=== PATIENT | male | born 1960 | race American Indian/Alaskan Native ===

== ENCOUNTER 2017-10-02 14:19 | Inpatient (IN) | payer OTHER ==
[2017-10-02] MEDS ORDERED: NACL 0.9% 500 ML 500 ML IV ONE (15:31)
[2017-10-02 16:35] LABS: Alanine Aminotransferase 12 units/L (7-56); Albumin 4.1 g/dL (3.9-5); BUN/Creatinine Ratio 14; Blood Urea Nitrogen 17 mg/dL (9-20); Calcium 9.2 mg/dL (8.4-10.2); Hemolysis Index 18
[2017-10-02] MEDS ORDERED: TYLENOL PR ONE ×2 (16:36→16:50)
[2017-10-02 16:40] LABS: Basophils # (Auto) 0.1 K/mm3 (0.0-0.1); Basophils % (Auto) 0.7 % (0.0-1.8); Eosinophils % (Auto) 0.4 % (0.0-4.3); Hematocrit 43.3 % (35.5-45.6); Hemoglobin 14.3 gm/dl (11.8-15.2); Lymphocytes % (Auto) 12.3 % (13.4-35.0); Mean Corpuscular HGB Conc 33 % (32-34); Mean Corpuscular Hemoglobin 29 pg (28-32); Mean Corpuscular Volume 89 fl (84-94); Monocytes # (Auto) 0.8 K/mm3 (0.0-0.8); Monocytes % (Auto) 9.5 % (0.0-7.3); Platelet Count 190 K/mm3 (140-440); Red Blood Count 4.89 M/mm3 (3.65-5.03); Red Cell Distribution Width 13.4 % (13.2-15.2)
[2017-10-02 16:41] LABS: Bilirubin,Urine NEG (Negative); Blood,Urine SM (Negative); Color,Urine Yellow (Yellow); Mucus,Urine FEW /HPF; Nitrite,Urine NEG (Negative); Protein,Urine <15 mg/dL mg/dL (Negative)
[2017-10-02 16:44] LABS: Creatine Kinase MB < 1.0 ng/mL (0.0-4.0)
[2017-10-02 16:48] LABS: INR 1.12 (0.87-1.13)
[2017-10-02 17:02] LABS: Amphetamine Screen,Urine PRESUMPTIVE NEGATIVE; Cannabinoid Screen,Urine PRESUMPTIVE NEGATIVE; Cocaine Screen,Urine PRESUMPTIVE NEGATIVE; Methadone Screen,Urine PRESUMPTIVE NEGATIVE; Opiate Screen,Urine PRESUMPTIVE NEGATIVE
[2017-10-02 17:17] LABS: Benzodiazepines Screen,Urine PRESUMPTIVE POSITIVE
[2017-10-02] MEDS ORDERED: VITAMIN B-1 100 MG, FOLVITE 1 MG, INFUVITE 10 ML in NACL 0.9% 1000 ML 1,000 ML IV ONE (17:32)
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
[2017-10-02] MEDS ORDERED: FOLVITE 1 MG, INFUVITE 10 ML in NACL 0.9% 1000 ML 1,000 ML IV ONE (18:00)
--- NOTE | 2017-10-02 18:21 | Cat Scan Report ---
FINAL REPORT PROCEDURE: CT HEAD/BRAIN WO CON TECHNIQUE: Computerized tomography of the head was performed without contrast material. HISTORY: ams COMPARISON: No prior studies are available for comparison. FINDINGS: Skull and scalp: Scalp swelling left frontal head area. Postsurgical change right anterior lateral bony orbit. Upper scalp swelling top of fat Paranasal sinuses: Normal. Ventricles and subarachnoid spaces: Normal. Cerebrum: No evidence of hemorrhage, acute infarction or mass . Cerebellum and brainstem: No evidence of hemorrhage, acute infarction or mass. Vasculature: Normal. Comments: None. IMPRESSION: No acute intracranial pathology seen at this time
[2017-10-02] MEDS ORDERED: ASPIRIN PR ONE (19:12)
[2017-10-02] MEDS ORDERED: ATIVAN IV PRN (19:14)
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
[2017-10-02] MEDS ORDERED: ZOFRAN IV PRN (20:19)
[2017-10-02] MEDS ORDERED: TYLENOL PO PRN (20:19)
[2017-10-02] MEDS ORDERED: PROVENTIL IH PRN (20:19)
[2017-10-02] MEDS ORDERED: VANCOMYCIN/NS 1 GM/250 ML 1 GM/250 ML BAG IV SCH ×2 (21:00)
[2017-10-02 21:12] LABS: Free T4 (Free Thyroxine) 0.95 ng/dL (0.76-1.46)
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
[2017-10-03] MEDS ORDERED: VITAMIN B-1 100 MG in NACL 0.9% 50 ML IV SCH (16:00)
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
[2017-10-03] MEDS: ATIVAN IV PRN (18:25)
[2017-10-03] MEDS: NS 0.45/KCL 20MEQ 20 MEQ/1,000 ML BAG IV SCH (18:51)
[2017-10-04] MEDS: ATIVAN IV PRN (01:37)
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
[2017-10-04] MEDS: NS 0.45/KCL 20MEQ 20 MEQ/1,000 ML BAG IV SCH (19:31)
[2017-10-05] MEDS: NORMODYNE IV PRN ×2 (01:21→08:56)
[2017-10-05] MEDS ORDERED: APRESOLINE IV PRN (04:42)
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
--- NOTE | 2017-10-05 11:26 | Vascular Lab Report ---
LOWER EXTREMITY VENOUS DUPLEX: REASON FOR EXAM: Pulmonary embolism. COMMENTS ON THE RIGHT: All veins visualized are freely compressible without evidence of internal echogenicity. Flow is spontaneous and phasic throughout. COMMENTS ON THE LEFT: All veins visualized are freely compressible without evidence of internal echogenicity. Flow is spontaneous and phasic throughout. IMPRESSION: No evidence of acute or chronic deep venous thrombosis in either lower extremity.
[2017-10-05] MEDS: LEVAQUIN 750MG/150ML 750 MG/150 ML BAG IV SCH (12:57)
[2017-10-05] MEDS: VITAMIN B-1 PO SCH (12:57)
[2017-10-05] MEDS: CATAPRES PO SCH ×2 (12:58→22:21)
[2017-10-05] MEDS: NORVASC PO SCH (12:59)
--- NOTE | 2017-10-05 14:36 | Cat Scan Report ---
CT HEAD WITHOUT CONTRAST: HISTORY: Weakness of extremities. TECHNIQUE: Sequential 2.5mm CT images. COMPARISON: To assess . FINDINGS: Cerebral Parenchyma: Within normal limits. Cerebellum: Within normal limits. Brainstem: Within normal limits. Ventricles: Normal. Sella: Normal. Extra-axial spaces: Normal. Basal Cisterns: Normal. Intracranial Hemorrhage: None. Midline Shift: None. Calvarium: Normal. Scalp hematoma near the vertex of the skull is again noted. Sinuses: Normal. Mastoid Air Cells: Normal. Visualized Orbits: Normal. IMPRESSION: No acute intracranial process is identified. No significant change since 10/02/17.
[2017-10-05 16:42] LABS: Alanine Aminotransferase 8 units/L (7-56); Albumin 3.6 g/dL (3.9-5); BUN/Creatinine Ratio 22; Blood Urea Nitrogen 20 mg/dL (9-20); Calcium 9.1 mg/dL (8.4-10.2); Hemolysis Index 18
[2017-10-05] MEDS: MAGIC MOUTHWASH PO SCH ×2 (17:32→20:20)
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
[2017-10-05] MEDS ORDERED: NACL ONE (18:25)
--- NOTE | 2017-10-05 20:09 | Cat Scan Report ---
FINAL REPORT EXAM: CT CERVICAL SPINE WO/W CON HISTORY: r/o cord compression TECHNIQUE: Standard enhanced CT cervical spine obtained at 1.25 millimeter axial increments. Coronal and sagittal reconstruction was also performed. Contrast: Intravenous contrast given. PRIORS: None. FINDINGS: At the C3-C4 level, there is a disc bulge centrally and to the left causing narrowing of the spinal canal of approximately 50 % (sagittal image 42, axial image 34). The vertebral bodies are intact. There is no evidence for acute fracture. There is no evidence for paravertebral soft tissue swelling. Alignment is maintained. Moderate degenerative disc changes are present throughout the cervical spine with osteophytes anteriorly. IMPRESSION: 1. at the C3-C4 level, there is a disc bulge noted centrally and to the left of midline causing narrowing of the spinal canal of approximately 50 %. 2. Moderate degenerative disc changes throughout the cervical spine.
[2017-10-06] MEDS: MAGIC MOUTHWASH PO SCH ×2 (08:45→14:00)
[2017-10-06] MEDS: NORVASC PO SCH (09:53)
[2017-10-06] MEDS: LEVAQUIN 750MG/150ML 750 MG/150 ML BAG IV SCH (09:54)
[2017-10-06] MEDS: CATAPRES PO SCH (09:54)
[2017-10-06 09:55] VITALS: BP 130/81
[2017-10-06] MEDS: VITAMIN B-1 PO SCH (09:55)
== END 2017-10-06 14:45 | DRG 177 ==
LOC: EEVIPCON 14:19 → ED 14:19 → 3A 20:51
PROVIDERS: ADMIT Internal Medicine; ATTEND Internal Medicine
PROC: 4A033R1 Measurement of Arterial Saturation, Peripheral, Percutaneous Approach (ICD-10-PCS; principal; 2017-10-03)
DX: J69.0 Pneumonitis due to inhalation of food and vomit (principal); G93.41 Metabolic encephalopathy; F10.239 Alcohol dependence with withdrawal, unspecified; R65.10 Systemic inflammatory response syndrome (SIRS) of non-infectious origin without acute organ dysfunction; G40.901 Epilepsy, unspecified, not intractable, with status epilepticus; R56.9 Unspecified convulsions; I16.0 Hypertensive urgency; Y90.9 Presence of alcohol in blood, level not specified; L89.151 Pressure ulcer of sacral region, stage 1; T65.891A Toxic effect of other specified substances, accidental (unintentional), initial encounter; Y92.89 Other specified places as the place of occurrence of the external cause
CPT/HCPCS: 36415; 36600; 70450; 71045; 71275; 72127; 80053; 80307; 80320; 81001; 82140; 82306; 82550; 82553; 82607; 82803; 82805; 83735; 84439; 84443; 84484; 85025; 85379; 85610; 86780; 87040; 87086; 87806; 93005; 93010; 93970; 95819; 96374; 96375; G0480; J0360; J1956; J2060; J3411; J7030; Q9967